=== PATIENT | female | born 1985 | race Caucasian/White ===

== ENCOUNTER 2019-06-15 11:28 | Emergency (ER) | payer MEDICARE, MEDICAID ==
[~2019-06-15] VITALS: Ht 160 cm; Wt 74.3 kg
[~2019-06-15 11:28] MED LIST: ALBU8.5H8 IH; CETI10CA PO; ESTR2TAB PO; SERT100T32 PO
[2019-06-15 11:41] VITALS: BP 140/88
[2019-06-15] MEDS ORDERED: KETOROLAC 30 MG/1 ML ONE (12:06)
[2019-06-15] MEDS ORDERED: METHOCARBAMOL 750 MG TABLET ONE (12:06)
--- NOTE | 2019-06-15 12:18 | NUR ---
pt to ed from home w/ . low back pain r/t seizure 3 days ago. hx seizures, does not take meds, has been having multiple recent seizures at home. needs neurologist. meds per mar. pt to xr.
[2019-06-15] MEDS ORDERED: METHOCARBAMOL 750 MG TABLET PO ONE (12:30)
[2019-06-15] MEDS ORDERED: KETOROLAC 30 MG/1 ML IM ONE (12:30)
== END 2019-06-15 13:16 | disposition home or self-care (01) ==
LOC: ED 13:10
DX: S39.012A Strain of muscle, fascia and tendon of lower back, initial encounter (principal); G40.909 Epilepsy, unspecified, not intractable, without status epilepticus; Z90.710 Acquired absence of both cervix and uterus; Z76.0 Encounter for issue of repeat prescription; W06.XXXA Fall from bed, initial encounter; Y93.89 Activity, other specified; Y92.89 Other specified places as the place of occurrence of the external cause; Y99.8 Other external cause status
CPT/HCPCS: 72110; 96372; 99283; J1885

== ENCOUNTER 2019-07-19 19:17 | Emergency (ER) | payer MEDICARE, MEDICAID ==
[~2019-07-19] VITALS: Ht 162.6 cm; Wt 73.9 kg
[2019-07-19] MEDS ORDERED: SODIUM CHLORIDE FLUSH 10ML SYR IVF ONE (20:00)
[2019-07-19 20:21] LABS: BASOPHILS # (AUTO) 0.02 x10^3/uL (0-0.1); BASOPHILS % (AUTO) 0 % (0-1); EOSINOPHILS # (AUTO) 0.07 x10^3/uL (0-0.4); EOSINOPHILS % (AUTO) 1 % (1-7); LYMPHOCYTES # (AUTO) 3.01 x10^3/uL (1-3.4); LYMPHOCYTES % (AUTO) 39 % (22-44); MD NO; MEAN CORPUSCULAR HEMOGLOBIN 28.1 pg (27.0-34.8); MEAN CORPUSCULAR HGB CONC 32.8 g/dL (32.4-35.8); MEAN CORPUSCULAR VOLUME 85.5 fL (80-100); MEAN PLATELET VOLUME 8.3 fL (7.4-10.4); MONOCYTES # (AUTO) 0.28 x10^3/uL (0.2-0.8); MONOCYTES % (AUTO) 4 % (2-9); NEUTROPHILS # (AUTO) 4.33 x10^3/uL (1.8-6.8); NEUTROPHILS % (AUTO) 56 % (42-75); PLATELET COUNT 303 x10^3/uL (130-400); RED BLOOD COUNT 5.14 x10^6/uL (3.82-5.3); RED CELL DISTRIBUTION WIDTH 15.3 % (9.6-15.2)
[2019-07-19 20:29] LABS: HCG UR SG 1.023 (1.003-1.030); MICROSCOPIC NOT IND
[2019-07-19 20:29] LABS: ALANINE AMINOTRANSFERASE 33 U/L (12-78); ALBUMIN 3.7 g/dL (3.4-5.0); ANION GAP 4 mmol/L (5-15); CALCIUM 9.1 mg/dL (8.5-10.1); CHLORIDE 109 mmol/L (98-107)
[2019-07-19 20:31] LABS: ALKALINE PHOSPHATASE 107 U/L (45-117); BILIRUBIN,TOTAL 0.2 mg/dL (0.2-1.0); TOTAL PROTEIN 7.9 g/dL (6.4-8.2)
[2019-07-19 20:45] LABS: CULTURE INDICATED? NO
[2019-07-19] MEDS ORDERED: ONDANSETRON 2MG/ML, 2ML ONE (21:17)
[2019-07-19] MEDS ORDERED: MORPHINE SULFATE 4 MG/ML, 1ML ONE ×2 (21:17→22:00)
[2019-07-19] MEDS ORDERED: ONDANSETRON 2MG/ML, 2ML IVPush ONE (21:30)
[2019-07-19] MEDS: MORPHINE SULFATE 4 MG/ML, 1ML IVPush PRN ×2 (21:34→22:05)
[2019-07-19] MEDS ORDERED: OMNIPAQUE 350 MG/ML, 100ML BOTTLE ONE (21:49)
[2019-07-19 22:06] VITALS: BP 115/74
--- NOTE | 2019-07-19 22:47 | NUR ---
Patient/Caregiver given discharge instructions and they have confirmed that they understand the instructions. Patient ambulatory with steady gait.
== END 2019-07-19 22:49 | disposition home or self-care (01) ==
LOC: ED 22:30
DX: R10.32 Left lower quadrant pain (principal); R11.0 Nausea; F17.200 Nicotine dependence, unspecified, uncomplicated; Z90.49 Acquired absence of other specified parts of digestive tract; Z85.41 Personal history of malignant neoplasm of cervix uteri; Z90.710 Acquired absence of both cervix and uterus; Z90.721 Acquired absence of ovaries, unilateral
CPT/HCPCS: 36415; 74177; 80053; 81003; 81025; 85025; 96374; 96375; 96376; 99284; J2270; J2405; Q9967

== ENCOUNTER 2019-10-03 11:15 | Emergency (ER) | payer MEDICARE, MEDICAID ==
[~2019-10-03] VITALS: Ht 160 cm; Wt 72.2 kg
--- NOTE | 2019-10-03 11:46 | NUR ---
KILO EDWARDS BS FOR EXAM.
--- NOTE | 2019-10-03 11:51 | NUR ---
C/O NAUSEA, DIARRHEA (DARK YELLOW), RUQ & RLQ PAIN. INTERMITTENT SX, WORSENED YESTERDAY. HAS HAD SIMILAR SX IN THE PAST. HAS HAD ELEVATED LIVER ENZYMES LEADING TO LIZZIE. LAST ORAL INTAKE: FOOD 1999 LAST NOC, COFFEE AT 0830 TODAY. 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 NO PAIN MED OR ANTI-DIARRHEAL TAKEN TODAY.
[2019-10-03] MEDS ORDERED: FAMOTIDINE 20 MG/2 ML IVPush ONE (12:00)
[2019-10-03] MEDS ORDERED: SODIUM CHLORIDE FLUSH 10ML SYR IVF ONE (12:00)
[2019-10-03] MEDS ORDERED: MORPHINE SULFATE 4 MG/ML, 1ML IVPush PRN (12:00)
[2019-10-03] MEDS ORDERED: ONDANSETRON 2MG/ML, 2ML IVPush ONE ×2 (12:00→14:30)
--- NOTE | 2019-10-03 12:05 | NUR ---
PT WAS AMBULATORY TO & FROM [facility] W/OUT INCIDENT; GAIT STEADY; VOIDED SPECIMEN PROVIDED. IV ACCESS SITES REVIEWED - LIMITED; WARM BLANKET PLACED OVER ARMS.
[2019-10-03 12:35] LABS: MICROSCOPIC NOT IND
[2019-10-03 12:38] LABS: CULTURE INDICATED? NO
--- NOTE | 2019-10-03 12:45 | NUR ---
CRUZ LEI AT FOR U/S IV ATTEMPT
[2019-10-03 13:06] LABS: BASOPHILS # (AUTO) 0.03 x10^3/uL (0-0.1); BASOPHILS % (AUTO) 0 % (0-1); EOSINOPHILS # (AUTO) 0.05 x10^3/uL (0-0.4); EOSINOPHILS % (AUTO) 1 % (1-7); LYMPHOCYTES # (AUTO) 3.06 x10^3/uL (1-3.4); LYMPHOCYTES % (AUTO) 32 % (22-44); MD NO; MEAN CORPUSCULAR HEMOGLOBIN 28.6 pg (27.0-34.8); MEAN CORPUSCULAR HGB CONC 33.4 g/dL (32.4-35.8); MEAN CORPUSCULAR VOLUME 85.6 fL (80-100); MONOCYTES # (AUTO) 0.43 x10^3/uL (0.2-0.8); MONOCYTES % (AUTO) 5 % (2-9); NEUTROPHILS # (AUTO) 6.03 x10^3/uL (1.8-6.8); NEUTROPHILS % (AUTO) 63 % (42-75); PLATELET COUNT 298 x10^3/uL (130-400); RED CELL DISTRIBUTION WIDTH 13.9 % (9.6-15.2)
[2019-10-03 13:15] LABS: ALANINE AMINOTRANSFERASE 32 U/L (12-78); ANION GAP 9 mmol/L (5-15); CALCIUM 9.4 mg/dL (8.5-10.1); CHLORIDE 108 mmol/L (98-107); CREATININE 0.73 mg/dL (0.55-1.02)
[2019-10-03 13:18] LABS: ALKALINE PHOSPHATASE 141 U/L (45-117); BILIRUBIN,TOTAL 0.3 mg/dL (0.2-1.0); TOTAL PROTEIN 8.1 g/dL (6.4-8.2)
[2019-10-03] MEDS ORDERED: MORPHINE SULFATE 4 MG/ML, 1ML ONE (13:24)
[2019-10-03] MEDS ORDERED: FAMOTIDINE 20 MG/2 ML ONE (13:24)
[2019-10-03] MEDS ORDERED: ONDANSETRON 2MG/ML, 2ML ONE ×2 (13:24→14:20)
--- NOTE | 2019-10-03 13:32 | NUR ---
ZOFRAN, PEPCID AND MORPHINE GIVEN PER EMAR.
--- NOTE | 2019-10-03 14:05 | NUR ---
PT REQUESTS MORE ZOFRAN AND MORPHINE. WILL CONSULT ERP. PT WILLING TO GO TO CT NOW.
--- NOTE | 2019-10-03 14:06 | NUR ---
TO CT PER MILAN
--- NOTE | 2019-10-03 14:15 | NUR ---
DR LIM CONSULTED RE: PT REQUEST FOR ADDITIONAL ZOFRAN AND PAIN MED. PER ERP, ADDITIONAL ZOFRAN WILL BE ORDERED; HOLD MORPHINE FOR NOW - AWAITING CT REPORT.
[2019-10-03] MEDS ORDERED: OMNIPAQUE 350 MG/ML, 100ML BOTTLE ONE (14:20)
--- NOTE | 2019-10-03 14:40 | NUR ---
GRETCHENFRAN GIVEN PER EMAR Addendum: 10/03/19 at 1443 by NOEL PT NOTIFIED OF TEMPORARY HOLD ORDER FOR MORPHINE.
[2019-10-03 14:48] VITALS: BP 116/79
[2019-10-03] MEDS ORDERED: KETOROLAC 30 MG/1 ML IVPush ONE (15:00)
[2019-10-03] MEDS ORDERED: KETOROLAC 30 MG/1 ML ONE (15:02)
--- NOTE | 2019-10-03 15:16 | NUR ---
TORADOL GIVEN PER EMAR. DC INSTRUCTIONS DISCUSSED W/ PT: UNDERSTANDING VERBALIZED.
== END 2019-10-03 15:21 | disposition home or self-care (01) ==
LOC: ED 12:22
DX: G89.29 Other chronic pain (principal); R10.31 Right lower quadrant pain; F17.210 Nicotine dependence, cigarettes, uncomplicated; Z90.710 Acquired absence of both cervix and uterus
CPT/HCPCS: 36415; 74177; 80053; 81003; 83690; 85025; 96374; 96375; 96376; 99285; J1885; J2270; J2405; J3490; Q9967

== ENCOUNTER 2019-10-12 14:16 | Emergency (ER) | payer MEDICAID, MEDICARE ==
[~2019-10-12] VITALS: Ht 160 cm; Wt 71.5 kg
--- NOTE | 2019-10-12 14:25 | NUR ---
AMBULATORY TO ED ROOM 9 W/ STEADY GAIT
--- NOTE | 2019-10-12 14:31 | NUR ---
C/O LT ABD PAIN: LLQ RADIATING TO LT FLANK. "GOT REAL BAD 2 DAYS AGO". WAS HERE 1 WEEK AGO FOR SIMILAR SX. TOOK IBUPROFEN ABOUT 1330, ZOLOFT THIS AM. +VOMITING: TWICE TODAY. LAST BM: TODAY REPORTS "MAJOR CONSTIPATION". TOOK MILK OF MAGNESIA 2 DAYS AGO. LAST ORAL INTAKE: COFFEE THIS AM, FOOD LAST NOC.
[2019-10-12] MEDS ORDERED: SODIUM CHLORIDE 0.9% 1,000ML IVBOLUS ONE (15:00)
[2019-10-12] MEDS ORDERED: ONDANSETRON 2MG/ML, 2ML IVPush ONE (15:00)
[2019-10-12] MEDS ORDERED: MORPHINE SULFATE 4 MG/ML, 1ML ONE ×2 (15:01→16:50)
[2019-10-12] MEDS ORDERED: ONDANSETRON 2MG/ML, 2ML ONE (15:01)
[2019-10-12] MEDS: MORPHINE SULFATE 4 MG/ML, 1ML IVPush PRN ×2 (15:17→16:53)
[2019-10-12 15:19] LABS: BASOPHILS # (AUTO) 0.04 x10^3/uL (0-0.1); BASOPHILS % (AUTO) 1 % (0-1); EOSINOPHILS # (AUTO) 0.06 x10^3/uL (0-0.4); EOSINOPHILS % (AUTO) 1 % (1-7); LYMPHOCYTES # (AUTO) 2.99 x10^3/uL (1-3.4); LYMPHOCYTES % (AUTO) 36 % (22-44); MD NO; MEAN CORPUSCULAR HEMOGLOBIN 27.7 pg (27.0-34.8); MEAN CORPUSCULAR VOLUME 86.4 fL (80-100); MEAN PLATELET VOLUME 8.1 fL (7.4-10.4); MONOCYTES # (AUTO) 0.35 x10^3/uL (0.2-0.8); MONOCYTES % (AUTO) 4 % (2-9); NEUTROPHILS # (AUTO) 4.81 x10^3/uL (1.8-6.8); NEUTROPHILS % (AUTO) 58 % (42-75); PLATELET COUNT 311 x10^3/uL (130-400); RED CELL DISTRIBUTION WIDTH 14.4 % (9.6-15.2)
[2019-10-12 15:30] LABS: ALANINE AMINOTRANSFERASE 23 U/L (12-78); ALBUMIN 4.4 g/dL (3.4-5.0); ANION GAP 6 mmol/L (5-15); CALCIUM 9.9 mg/dL (8.5-10.1); CHLORIDE 107 mmol/L (98-107); CREATININE 0.88 mg/dL (0.55-1.02)
[2019-10-12 15:32] LABS: ALKALINE PHOSPHATASE 131 U/L (45-117); BILIRUBIN,TOTAL 0.2 mg/dL (0.2-1.0); TOTAL PROTEIN 9.1 g/dL (6.4-8.2)
[2019-10-12 15:36] LABS: MICROSCOPIC AUTO
[2019-10-12 15:38] LABS: CULTURE INDICATED? NO
--- NOTE | 2019-10-12 16:05 | NUR ---
RETURNED FROM CT
[2019-10-12] MEDS ORDERED: OMNIPAQUE 350 MG/ML, 100ML BOTTLE ONE (16:19)
--- NOTE | 2019-10-12 16:22 | NUR ---
RESTING QUIETLY ON GURNEY. SLIGHT IMPROVEMENT IN PAIN; NOW PAIN = 8/10. NS BOLUS INFUSING W-O; IV SITE PATENT. PT ADMITS TO BEING SLEEPY. O2 SAT 100% ON 2LNC; OXYGEN DC'D. SIDE RAILS UP X2, CALL LIGHT W/IN REACH.
[2019-10-12 16:57] VITALS: BP 121/80
== END 2019-10-12 17:53 | disposition home or self-care (01) ==
LOC: ED 15:27
DX: N13.2 Hydronephrosis with renal and ureteral calculous obstruction (principal); N23 Unspecified renal colic; R11.2 Nausea with vomiting, unspecified
CPT/HCPCS: 36415; 74177; 80053; 81001; 83690; 85025; 96361; 96374; 96375; 96376; 99285; J2270; J2405; J7030; Q9967

== ENCOUNTER 2020-01-08 08:59 | Emergency (ER) | payer MEDICARE, MEDICAID ==
[~2020-01-08] VITALS: Ht 160 cm; Wt 72.8 kg
--- NOTE | 2020-01-08 09:39 | NUR ---
Dr. Quintero at bedside to remove dried mucous from pt's R nare. Pt tolerated well, resps even and unlabored, NADN.
[2020-01-08 09:40] VITALS: BP 121/76
== END 2020-01-08 10:09 | disposition home or self-care (01) ==
LOC: ED 10:00
DX: R04.0 Epistaxis (principal); Z90.710 Acquired absence of both cervix and uterus; Z90.722 Acquired absence of ovaries, bilateral; Z90.49 Acquired absence of other specified parts of digestive tract; Z85.41 Personal history of malignant neoplasm of cervix uteri
CPT/HCPCS: 99281

== ENCOUNTER 2020-01-30 13:48 | Day surgery (SDC) | payer MEDICARE, MEDICAID ==
[~2020-01-30] VITALS: Ht 160 cm; Wt 70.9 kg
[2020-01-30 14:27] VITALS: BP 137/93
[2020-01-30] MEDS ORDERED: GABAPENTIN 300 MG CAPSULE PO ONE (14:30)
[2020-01-30] MEDS ORDERED: CHLORHEXIDINE 15 ML UDC MM ONE (14:30)
[2020-01-30] MEDS ORDERED: SERT100T32 PO (14:39)
[2020-01-30] MEDS ORDERED: LACTATED RINGERS 1,000 ML IV SCH (15:00)
[2020-01-30] MEDS ORDERED: ACETAMINOPHEN 500 MG TABLET PO ONE (15:00)
[2020-01-30] MEDS ORDERED: FENTANYL PF 250 MCG/5ML ONE (18:55)
[2020-01-30] MEDS ORDERED: MIDAZOLAM 1 MG/ML, 2ML ONE (18:55)
[2020-01-30] MEDS ORDERED: MEPERIDINE/PF 25MG/0.5ML IVPush PRN (19:00)
[2020-01-30] MEDS ORDERED: hydrALAzine 20 MG/ML, 1ML IV PRN (19:00)
[2020-01-30] MEDS ORDERED: DIPHENHYDRAMINE 50 MG/ML, 1ML IVPush PRN (19:00)
[2020-01-30] MEDS ORDERED: HALOPERIDOL 5 MG/ML IV PRN (19:00)
[2020-01-30] MEDS ORDERED: LABETALOL 5MG/ML, 20ML IV PRN (19:00)
[2020-01-30] MEDS ORDERED: PROMETHAZINE 25 MG/ML, 1ML IVPush PRN (19:00)
[2020-01-30] MEDS ORDERED: OXYcodone 5 MG/5 ML ORAL.SOL UDC PO PRN (19:00)
[2020-01-30] MEDS ORDERED: BUPIVACAINE/PF-EPI 0.25% 1:200K ONE (19:03)
[2020-01-30] MEDS ORDERED: KETOROLAC 30 MG/1 ML ONE (19:35)
[2020-01-30] MEDS ORDERED: CEFAZOLIN 1,000 MG ONE (20:01)
[2020-01-30] MEDS ORDERED: NEOSTIGMINE 1 MG/ML, 10ML ONE (20:01)
[2020-01-30] MEDS ORDERED: ONDANSETRON 2MG/ML, 2ML ONE (20:01)
[2020-01-30] MEDS ORDERED: DEXAMETHASONE 4 MG/ML, 1ML ONE (20:01)
[2020-01-30] MEDS ORDERED: SUGAMMADEX 200 MG/2 ML IVPush ONE ×2 (20:01)
[2020-01-30] MEDS ORDERED: ROCURONIUM 10MG/ML,5ML ONE (20:01)
[2020-01-30] MEDS ORDERED: SUCCINYLCHOLINE 20 MG/ML, 10ML ONE (20:01)
[2020-01-30] MEDS ORDERED: PROPOFOL 10 MG/ML, 20ML ONE (20:01)
[2020-01-30] MEDS ORDERED: GLYCOPYRROLATE 0.2MG/1ML, 5ML ONE (20:01)
[2020-01-30] MEDS ORDERED: BUPIVACAINE/PF-EPI 0.25% 1:200K INFIL ONE (20:06)
[2020-01-30] MEDS ORDERED: FENTANYL PF 100 MCG/2ML ONE (20:31)
[2020-01-30] MEDS ORDERED: OXYcodone 5 MG/5 ML ORAL.SOL UDC ONE ×2 (20:31→20:48)
[2020-01-30] MEDS: FENTANYL PF 100 MCG/2ML IV PRN ×2 (20:32→20:38)
[2020-01-30] MEDS ORDERED: DIAZEPAM 5 MG/ML, 2ML ONE (20:42)
[2020-01-30] MEDS: DIAZEPAM 5 MG/ML, 2ML IVPush PRN ×2 (20:45→21:16)
[2020-01-30] MEDS ORDERED: LORazepam 2 MG/ML, 1ML IVPush PRN (21:00)
[2020-01-30] MEDS ORDERED: HYDROmorphone 1 MG/ML, 1ML INJ ONE (21:10)
[2020-01-30] MEDS: HYDROmorphone 1 MG/ML, 1ML INJ IVPush PRN ×2 (21:16→21:32)
== END 2020-01-30 23:24 | disposition home or self-care (01) ==
LOC: OR 13:48 → 5SO 22:15 → OR 23:24
PROVIDERS: ATTEND Obstetrics & Gynecology Female Pelvic Medicine and Reconstructive Surgery
DX: R10.2 Pelvic and perineal pain (principal); Z11.59 Encounter for screening for other viral diseases; N94.10 Unspecified dyspareunia; I10 Essential (primary) hypertension; M06.9 Rheumatoid arthritis, unspecified; G43.909 Migraine, unspecified, not intractable, without status migrainosus; J45.909 Unspecified asthma, uncomplicated; G40.909 Epilepsy, unspecified, not intractable, without status epilepticus; F17.210 Nicotine dependence, cigarettes, uncomplicated; Z79.899 Other long term (current) drug therapy; Z88.0 Allergy status to penicillin; Z88.8 Allergy status to other drugs, medicaments and biological substances; Z91.040 Latex allergy status; Z87.442 Personal history of urinary calculi; Z90.710 Acquired absence of both cervix and uterus; Z90.49 Acquired absence of other specified parts of digestive tract; Z90.722 Acquired absence of ovaries, bilateral; Z98.890 Other specified postprocedural states
CPT/HCPCS: 36415; 49320; 87635; J0330; J0690; J1100; J1170; J1885; J2250; J2405; J2704; J3010; J3360; J7120; G0378; J2710

== ENCOUNTER 2020-06-20 17:14 | Emergency (ER) | payer MEDICARE, MEDICAID ==
[~2020-06-20] VITALS: Ht 160 cm; Wt 71.0 kg
--- NOTE | 2020-06-20 18:21 | NUR ---
TASK RN: ELVIRA FAROOQ OBTAINED W/O INCIDENT. WALKED TO LAB.
[2020-06-20] MEDS ORDERED: OXYC5TAB3 PO (18:26)
--- NOTE | 2020-06-20 18:27 | NUR ---
LATE ENTRY: PT PRESENTED TO ED D/T VAGINAL PAIN AND DISCHARGE. PT STATES HX OF CERVIAL CANCER. STATES SYMPTOMS STARTED TODAY.
[2020-06-20 18:46] LABS: HCG UR SG 1.036 (1.003-1.030); MICROSCOPIC NOT IND
--- NOTE | 2020-06-20 18:48 | NUR ---
REPORT TO KAY AWAD.
[2020-06-20] MEDS ORDERED: OXYcodone IR 5MG TABLET PO STA (18:51)
--- NOTE | 2020-06-20 18:51 | NUR ---
BEDSIDE REPORT RECEIVED FROM MAYA VILLANUEVA
[2020-06-20 18:55] LABS: CLUE CELLS NONE SEEN (NONE SEEN); WET PREP WBCS MANY (FEW)
[2020-06-20] MEDS ORDERED: OXYcodone IR 5MG TABLET ONE ×2 (18:56→19:00)
[2020-06-20 19:02] VITALS: BP 130/75
[2020-06-20 19:06] LABS: BASOPHILS % (AUTO) 1 % (0-1); EOSINOPHILS % (AUTO) 2 % (1-7); LYMPHOCYTES % (AUTO) 39 % (22-44); MEAN CORPUSCULAR HEMOGLOBIN 28.7 pg (27.0-34.8); MEAN CORPUSCULAR HGB CONC 33.1 g/dL (32.4-35.8); MEAN PLATELET VOLUME 8.1 fL (7.4-10.4); MONOCYTES % (AUTO) 5 % (2-9); NEUTROPHILS % (AUTO) 53 % (42-75); PLATELET COUNT 242 x10^3/uL (130-400); RED BLOOD COUNT 4.56 x10^6/uL (3.82-5.3); RED CELL DISTRIBUTION WIDTH 14.4 % (9.6-15.2)
[2020-06-20 19:08] LABS: MD NO
[2020-06-20] MEDS ORDERED: FLUCONAZOLE 100 MG TABLET ONE (19:17)
[2020-06-20 19:18] LABS: CHLORIDE 109 mmol/L (98-107)
[2020-06-20 19:22] LABS: ANION GAP 4 mmol/L (5-15); CALCIUM 9.5 mg/dL (8.5-10.1); CREATININE 0.72 mg/dL (0.55-1.02)
--- NOTE | 2020-06-20 19:25 | NUR ---
PT SITTING UPRIGHT ON GURNEY. NAD, VSS. "I WANT TO LEAVE NOW, I GOT MY MEDICATION AND I WANT TO GO HOME, ITS SNOWING I HAVE TO LEAVE". AWAITING D/C. PT DENIES NAY NEEDS AT THIS TIME. CALL LIGHT WITHIN REACH.
[2020-06-20] MEDS ORDERED: FLUCONAZOLE 100 MG TABLET PO ONE (19:30)
[2020-06-20] MEDS ORDERED: OXYcodone IR 5MG TABLET PO ONE (19:30)
--- NOTE | 2020-06-20 19:31 | NUR ---
ERP AT BEDSIDE
--- NOTE | 2020-06-20 19:41 | NUR ---
Patient given discharge instructions and they have confirmed that they understand the instructions. Patient ambulatory with steady gait. Pt refused repeat vitals at this time.
== END 2020-06-20 19:43 | disposition home or self-care (01) ==
LOC: ED 18:33
DX: B37.3 Candidiasis of vulva and vagina (principal); Z90.49 Acquired absence of other specified parts of digestive tract; Z90.710 Acquired absence of both cervix and uterus; Z90.721 Acquired absence of ovaries, unilateral; F17.200 Nicotine dependence, unspecified, uncomplicated; Z85.41 Personal history of malignant neoplasm of cervix uteri
CPT/HCPCS: 36415; 80048; 81003; 81025; 85025; 87210; 87491; 87591; 87808; 99284

== ENCOUNTER 2020-07-06 19:48 | Emergency (ER) | payer MEDICARE, MEDICAID ==
[~2020-07-06] VITALS: Ht 160 cm; Wt 67.7 kg
[~2020-07-06 19:48] MED LIST changes: +OXYC5TAB3 PO
[2020-07-06] MEDS ORDERED: METHOCARBAMOL 750 MG TABLET ONE (20:15)
--- NOTE | 2020-07-06 20:23 | NUR ---
PT HERE FOR BACK PAIN X 3 DAYS. PT STATES TAKING IBUPROFEN, TYLENOL, AND ROBAXIN 3 HOURS AGO BEFORE COMING IN AND NO PAIN RELIEF. ERP EVALUATED PATIENT. PT MEDICATED PER EMAR, PT CURRENTLY GETTING CLEAN CATCH URINE SAMPLE
[2020-07-06] MEDS ORDERED: METHOCARBAMOL 750 MG TABLET PO ONE (20:30)
[2020-07-06] MEDS ORDERED: ONDANSETRON ODT 4 MG PO ONE (20:30)
[2020-07-06 20:37] LABS: MICROSCOPIC NOT IND
[2020-07-06] MEDS ORDERED: HYDROmorphone 2 MG/ML, 1ML ONE (20:43)
[2020-07-06] MEDS ORDERED: ONDANSETRON ODT 4 MG ONE (20:46)
--- NOTE | 2020-07-06 20:55 | NUR ---
SPOKE WITH ERP ABOUT PT'S PAIN, ORDER GIVEN AND MEDICATED PER EMAR. LAB AT BEDSIDE FOR BLOOD DRAW. NO OTHER NEEDS AT THIS TIME
[2020-07-06] MEDS ORDERED: HYDROmorphone 1 MG/ML, 1ML INJ IM ONE (21:00)
[2020-07-06 21:10] LABS: BASOPHILS % (AUTO) 1 % (0-1); EOSINOPHILS % (AUTO) 0 % (1-7); LYMPHOCYTES % (AUTO) 33 % (22-44); MEAN CORPUSCULAR HEMOGLOBIN 28.7 pg (27.0-34.8); MEAN CORPUSCULAR HGB CONC 33.1 g/dL (32.4-35.8); MEAN PLATELET VOLUME 7.7 fL (7.4-10.4); MONOCYTES % (AUTO) 5 % (2-9); NEUTROPHILS % (AUTO) 62 % (42-75); PLATELET COUNT 354 x10^3/uL (130-400); RED BLOOD COUNT 5.57 x10^6/uL (3.82-5.3); RED CELL DISTRIBUTION WIDTH 14.6 % (9.6-15.2)
[2020-07-06 21:12] LABS: MD NO
[2020-07-06 21:19] LABS: ANION GAP 6 mmol/L (5-15); CALCIUM 9.5 mg/dL (8.5-10.1); CHLORIDE 108 mmol/L (98-107)
[2020-07-06 21:26] LABS: ALANINE AMINOTRANSFERASE 18 U/L (12-78); ALKALINE PHOSPHATASE 148 U/L (45-117); BILIRUBIN,TOTAL 0.4 mg/dL (0.2-1.0); CREATININE 0.83 mg/dL (0.55-1.02); TOTAL PROTEIN 8.5 g/dL (6.4-8.2)
[2020-07-06] MEDS ORDERED: OXYcodone/APAP 5/325MG TABLET ONE (22:16)
[2020-07-06] MEDS ORDERED: OXYcodone/APAP 10/325MG TABLET PO ONE (22:30)
[2020-07-06 22:47] VITALS: BP 118/86
== END 2020-07-06 23:07 | disposition home or self-care (01) ==
LOC: ED 20:37
DX: G89.29 Other chronic pain (principal); M54.41 Lumbago with sciatica, right side; R10.13 Epigastric pain; R10.11 Right upper quadrant pain; Z90.49 Acquired absence of other specified parts of digestive tract; Z90.710 Acquired absence of both cervix and uterus
CPT/HCPCS: 36415; 80053; 81003; 83690; 84703; 85025; 96372; 99284; J1170; J7512; Q0162; 99283

== ENCOUNTER 2020-08-28 10:02 | Emergency (ER) | payer MEDICARE, MEDICAID ==
[~2020-08-28] VITALS: Ht 160 cm; Wt 68.4 kg
[~2020-08-28 10:02] MED LIST changes: -OXYC5TAB3 PO; +OXYC5TAB98 PO
[2020-08-28 10:15] VITALS: BP 133/90
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
[2020-08-28] MEDS ORDERED: SILVER SULF. CRM 1% , 25GM TP ONE (11:00)
[2020-08-28] MEDS ORDERED: OXYcodone/APAP 5/325MG TABLET PO ONE (11:00)
[2020-08-28] MEDS ORDERED: OXYcodone/APAP 5/325MG TABLET ONE (11:01)
[2020-08-28] MEDS ORDERED: SILVER SULF. CRM 1% , 25GM ONE (11:12)
--- NOTE | 2020-08-28 11:40 | NUR ---
Wound dressed by PIPPA Lopez. Patient tolerated well.
--- NOTE | 2020-08-28 12:10 | NUR ---
Patient/Caregiver given discharge instructions and they have confirmed that they understand the instructions. Patient ambulatory with steady gait.
== END 2020-08-28 12:12 | disposition home or self-care (01) ==
LOC: ED 12:09
DX: T23.112A Burn of first degree of left thumb (nail), initial encounter (principal); T31.0 Burns involving less than 10% of body surface; F17.210 Nicotine dependence, cigarettes, uncomplicated; X11.8XXA Contact with other hot tap-water, initial encounter; Y93.G3 Activity, cooking and baking; Y92.89 Other specified places as the place of occurrence of the external cause; Y99.8 Other external cause status
CPT/HCPCS: 16020; 99283

== ENCOUNTER 2020-08-28 17:35 | Emergency (ER) | payer MEDICARE, MEDICAID ==
[~2020-08-28] VITALS: Ht 160 cm; Wt 67.2 kg
[2020-08-28 17:42] VITALS: BP 130/91
[2020-08-28] MEDS ORDERED: DIPHENHYDRAMINE 25 MG CAPSULE ONE (18:19)
[2020-08-28] MEDS ORDERED: GABAPENTIN 300 MG CAPSULE ONE (18:20)
[2020-08-28] MEDS ORDERED: DIPHENHYDRAMINE 25 MG CAPSULE PO ONE (18:30)
[2020-08-28] MEDS ORDERED: GABAPENTIN 300 MG CAPSULE PO ONE (18:30)
== END 2020-08-28 18:56 | disposition home or self-care (01) ==
LOC: ED 18:20
DX: T23.212A Burn of second degree of left thumb (nail), initial encounter (principal); T23.272A Burn of second degree of left wrist, initial encounter; T31.0 Burns involving less than 10% of body surface; F17.210 Nicotine dependence, cigarettes, uncomplicated; Z90.49 Acquired absence of other specified parts of digestive tract; Z90.710 Acquired absence of both cervix and uterus; Z90.722 Acquired absence of ovaries, bilateral; Z85.41 Personal history of malignant neoplasm of cervix uteri
CPT/HCPCS: 16020; 99283; 99406; Q0163

== ENCOUNTER 2020-10-04 11:35 | Emergency (ER) | payer MEDICARE, MEDICAID ==
[~2020-10-04] VITALS: Ht 160 cm; Wt 69.3 kg
[2020-10-04 11:40] VITALS: BP 138/78
--- NOTE | 2020-10-04 12:03 | NUR ---
PT C/O LEFT FLANK PAIN THAT RADIATES TO THE BELLY BUTTON. PT STATES SHE WENT TO BED LAST NIGHT WTH UPSET STOMACH BUT WOKE UP THIS AM WITH PAIN TO THE LEFT FLANK. PT ALSO C/O DIZZINESS.
[2020-10-04 12:24] LABS: MICROSCOPIC NOT IND
[2020-10-04] MEDS ORDERED: KETOROLAC 30 MG/1 ML IM ONE (12:30)
[2020-10-04 12:33] LABS: BASOPHILS % (AUTO) 1 % (0-1); EOSINOPHILS % (AUTO) 0 % (1-7); LYMPHOCYTES % (AUTO) 37 % (22-44); MD NO; MEAN CORPUSCULAR HEMOGLOBIN 29.1 pg (27.0-34.8); MEAN CORPUSCULAR HGB CONC 33.9 g/dL (32.4-35.8); MEAN PLATELET VOLUME 7.9 fL (7.4-10.4); MONOCYTES % (AUTO) 4 % (2-9); NEUTROPHILS % (AUTO) 58 % (42-75); PLATELET COUNT 307 x10^3/uL (130-400); RED BLOOD COUNT 5.24 x10^6/uL (3.82-5.3); RED CELL DISTRIBUTION WIDTH 14.4 % (9.6-15.2)
[2020-10-04] MEDS ORDERED: KETOROLAC 60 MG/2 ML ONE (12:33)
[2020-10-04 12:42] LABS: ALBUMIN 4.1 g/dL (3.4-5.0); ANION GAP 7 mmol/L (5-15); CALCIUM 9.8 mg/dL (8.5-10.1); CHLORIDE 106 mmol/L (98-107); CREATININE 0.66 mg/dL (0.55-1.02)
[2020-10-04 12:44] LABS: ALANINE AMINOTRANSFERASE 17 U/L (12-78); ALKALINE PHOSPHATASE 115 U/L (45-117); BILIRUBIN,TOTAL 0.3 mg/dL (0.2-1.0); TOTAL PROTEIN 8.2 g/dL (6.4-8.2)
--- NOTE | 2020-10-04 13:04 | NUR ---
PT REFUSED TORADOL. NOTIFIED. PT AGREES TO GET X RAY
[2020-10-04] MEDS ORDERED: MAALOX/HYOSCYAMINE/LIDOCAINE 45 ML BTL ONE (13:19)
[2020-10-04] MEDS ORDERED: MAALOX/HYOSCYAMINE/LIDOCAINE 45 ML BTL PO ONE (13:30)
== END 2020-10-04 13:29 | disposition home or self-care (01) ==
LOC: ED 12:04
DX: G89.29 Other chronic pain (principal); R10.32 Left lower quadrant pain; Z90.49 Acquired absence of other specified parts of digestive tract; Z90.710 Acquired absence of both cervix and uterus; Z90.721 Acquired absence of ovaries, unilateral
CPT/HCPCS: 36415; 74018; 80053; 81003; 83690; 85025; 93005; 99285

== ENCOUNTER 2020-11-01 12:48 | Emergency (ER) | payer MEDICARE, MEDICAID ==
[~2020-11-01] VITALS: Ht 160 cm; Wt 68.6 kg
--- NOTE | 2020-11-01 13:32 | NUR ---
CABINET ABRASIVE SANDBLASTER: PT AMBULATORY TO ROOM FROMO LOBBY.
--- NOTE | 2020-11-01 13:43 | NUR ---
PT AMBULATORY TO BR TO PROVIDE UA.
[2020-11-01 14:09] VITALS: BP 131/81
[2020-11-01 14:12] LABS: BASOPHILS % (AUTO) 1 % (0-1); EOSINOPHILS % (AUTO) 1 % (1-7); LYMPHOCYTES % (AUTO) 38 % (22-44); MEAN CORPUSCULAR HEMOGLOBIN 29.7 pg (27.0-34.8); MONOCYTES % (AUTO) 5 % (2-9); NEUTROPHILS % (AUTO) 57 % (42-75); PLATELET COUNT 400 x10^3/uL (130-400); RED BLOOD COUNT 5.07 x10^6/uL (3.82-5.3); RED CELL DISTRIBUTION WIDTH 14.9 % (9.6-15.2)
[2020-11-01 14:12] LABS: MICROSCOPIC NOT IND
[2020-11-01 14:13] LABS: ALANINE AMINOTRANSFERASE 18 U/L (12-78); ALBUMIN 4.1 g/dL (3.4-5.0); ANION GAP 5 mmol/L (5-15); CALCIUM 9.4 mg/dL (8.5-10.1); CHLORIDE 108 mmol/L (98-107)
[2020-11-01] MEDS ORDERED: DICYCLOMINE 10 MG/ML, 2ML ONE (14:16)
[2020-11-01] MEDS ORDERED: ONDANSETRON 2MG/ML, 2ML ONE (14:16)
--- NOTE | 2020-11-01 14:16 | NUR ---
X-RAY, US DELAYED
[2020-11-01 14:17] LABS: ALKALINE PHOSPHATASE 117 U/L (45-117); BILIRUBIN,TOTAL 0.2 mg/dL (0.2-1.0); TOTAL PROTEIN 8.3 g/dL (6.4-8.2)
[2020-11-01 14:18] LABS: MD NO
--- NOTE | 2020-11-01 14:20 | NUR ---
IN TO START IV AND GIVE MEDICATIONS. PT IN IMAGING.
[2020-11-01] MEDS ORDERED: DICYCLOMINE 10 MG/ML, 2ML IM ONE (14:30)
[2020-11-01] MEDS ORDERED: SODIUM CHLORIDE 0.9% 1,000ML IVBOLUS ONE (14:30)
[2020-11-01] MEDS ORDERED: ONDANSETRON 2MG/ML, 2ML IVPush ONE (14:30)
[2020-11-01] MEDS ORDERED: SODIUM CHLORIDE FLUSH 10ML SYR IVF ONE (14:30)
--- NOTE | 2020-11-01 15:04 | NUR ---
REPORT FROM RENETTA VILLANUEVA
--- NOTE | 2020-11-01 15:04 | NUR ---
REPORT TO HALEY DUBOSE BACK FROM IMAGING. ED MEDIC IN TO START IV.
--- NOTE | 2020-11-01 15:23 | NUR ---
PT REFUSING BENTYL, STATES "I DONT WANT ANOTHER SHOT, ROBERT BEEN POKED SO MANY TIMES", PT EDUCATED ON MED, PT STIL LREFUSING AND STATING "I JUST WANT MY PAIN GONE".
== END 2020-11-01 16:17 | disposition home or self-care (01) ==
LOC: ED 13:36
DX: R10.31 Right lower quadrant pain (principal); R11.2 Nausea with vomiting, unspecified; R19.7 Diarrhea, unspecified; F17.210 Nicotine dependence, cigarettes, uncomplicated; I10 Essential (primary) hypertension; Z90.49 Acquired absence of other specified parts of digestive tract; Z85.41 Personal history of malignant neoplasm of cervix uteri
CPT/HCPCS: 36415; 74021; 76830; 80053; 81003; 83690; 84703; 85025; 96361; 96374; 99285; 99406; J2405; J7030

== ENCOUNTER 2020-11-26 11:09 | Emergency (ER) | payer MEDICARE, MEDICAID ==
[~2020-11-26] VITALS: Ht 160 cm; Wt 67.0 kg
[2020-11-26] MEDS ORDERED: SODIUM CHLORIDE 0.9% 1,000ML IVBOLUS ONE ×2 (12:00→14:00)
[2020-11-26 12:38] LABS: BASOPHILS % (AUTO) 1 % (0-1); EOSINOPHILS % (AUTO) 0 % (1-7); LYMPHOCYTES % (AUTO) 30 % (22-44); MEAN CORPUSCULAR HEMOGLOBIN 29.7 pg (27.0-34.8); MEAN CORPUSCULAR HGB CONC 33.9 g/dL (32.4-35.8); MEAN PLATELET VOLUME 7.9 fL (7.4-10.4); MONOCYTES % (AUTO) 4 % (2-9); NEUTROPHILS % (AUTO) 65 % (42-75); PLATELET COUNT 387 x10^3/uL (130-400); RED BLOOD COUNT 5.43 x10^6/uL (3.82-5.3); RED CELL DISTRIBUTION WIDTH 14.4 % (9.6-15.2)
[2020-11-26 13:01] LABS: ALANINE AMINOTRANSFERASE 24 U/L (12-78); ALBUMIN 4.3 g/dL (3.4-5.0); ANION GAP 11 mmol/L (5-15); CALCIUM 9.4 mg/dL (8.5-10.1); CHLORIDE 107 mmol/L (98-107); CREATININE 0.74 mg/dL (0.55-1.02)
[2020-11-26 13:04] LABS: ALKALINE PHOSPHATASE 145 U/L (45-117); BILIRUBIN,TOTAL 0.4 mg/dL (0.2-1.0); TOTAL PROTEIN 8.8 g/dL (6.4-8.2)
[2020-11-26 13:26] LABS: MD SCAN
[2020-11-26] MEDS ORDERED: SODIUM CHLORIDE FLUSH 10ML SYR IVF ONE (14:00)
[2020-11-26] MEDS ORDERED: MORPHINE SULFATE 4 MG/ML, 1ML IVPush PRN (14:00)
[2020-11-26] MEDS ORDERED: ONDANSETRON 2MG/ML, 2ML IVPush ONE (14:00)
[2020-11-26] MEDS ORDERED: ONDANSETRON 2MG/ML, 2ML ONE (14:01)
[2020-11-26] MEDS ORDERED: MORPHINE SULFATE 4 MG/ML, 1ML ONE (14:01)
[2020-11-26 14:02] LABS: MICROSCOPIC AUTO
--- NOTE | 2020-11-26 15:19 | NUR ---
pt refusing dc, requests provider. aware.
--- NOTE | 2020-11-26 15:39 | NUR ---
PT AMBULATES TO BATHROOM WITH SISTER.
[2020-11-26] MEDS ORDERED: KETOROLAC 30 MG/1 ML ONE (16:06)
[2020-11-26 16:13] VITALS: BP 126/76
[2020-11-26] MEDS ORDERED: KETOROLAC 30 MG/1 ML IVPush ONE (16:30)
== END 2020-11-26 16:29 | disposition home or self-care (01) ==
LOC: ED 11:19
DX: R11.2 Nausea with vomiting, unspecified (principal); R19.7 Diarrhea, unspecified; I10 Essential (primary) hypertension; J45.909 Unspecified asthma, uncomplicated; Z90.49 Acquired absence of other specified parts of digestive tract
CPT/HCPCS: 36415; 80053; 81001; 83690; 85025; 93005; 96361; 96374; 96375; 99284; J1885; J2270; J2405; J7030

== ENCOUNTER 2020-11-27 09:19 | Emergency (ER) | payer MEDICARE, MEDICAID ==
[~2020-11-27] VITALS: Ht 160 cm; Wt 67.7 kg
--- NOTE | 2020-11-27 09:50 | NUR ---
PT REPORTS SHE WAS JUST HOSPITALIZED X2 DAYS HERE FOR SAME COMPLAINT. REPORTS SHE WAS TOLD TO COME BACK IF SYMPTOMS NOT IMPROVING.
--- NOTE | 2020-11-27 09:59 | NUR ---
MOTHER & GRANDMOTHER VISITING AT BS.
[2020-11-27] MEDS ORDERED: FAMOTIDINE 20 MG/2 ML IVPush ONE (10:00)
[2020-11-27] MEDS ORDERED: SODIUM CHLORIDE 0.9% 1,000ML IVBOLUS ONE (10:00)
[2020-11-27] MEDS ORDERED: ONDANSETRON 2MG/ML, 2ML IVPush ONE (10:00)
[2020-11-27] MEDS ORDERED: ONDANSETRON 2MG/ML, 2ML ONE (10:05)
[2020-11-27 10:44] LABS: BASOPHILS % (AUTO) 1 % (0-1); EOSINOPHILS % (AUTO) 1 % (1-7); LYMPHOCYTES % (AUTO) 31 % (22-44); MEAN CORPUSCULAR HEMOGLOBIN 29.4 pg (27.0-34.8); MEAN PLATELET VOLUME 7.5 fL (7.4-10.4); MONOCYTES % (AUTO) 4 % (2-9); NEUTROPHILS % (AUTO) 64 % (42-75); PLATELET COUNT 333 x10^3/uL (130-400); RED BLOOD COUNT 4.89 x10^6/uL (3.82-5.3); RED CELL DISTRIBUTION WIDTH 14.1 % (9.6-15.2)
[2020-11-27 10:45] LABS: MD NO
--- NOTE | 2020-11-27 10:49 | NUR ---
PT MEDICATED PER ORDERS, IV BOLUS INFUSING. UNDERSTANDS POC. FAMILY AT BS.
[2020-11-27 10:53] LABS: ALANINE AMINOTRANSFERASE 24 U/L (12-78); ALBUMIN 3.8 g/dL (3.4-5.0); ANION GAP 8 mmol/L (5-15); CALCIUM 8.9 mg/dL (8.5-10.1); CHLORIDE 109 mmol/L (98-107); CREATININE 0.62 mg/dL (0.55-1.02)
[2020-11-27 10:55] LABS: ALKALINE PHOSPHATASE 122 U/L (45-117); BILIRUBIN,TOTAL 0.3 mg/dL (0.2-1.0); TOTAL PROTEIN 7.7 g/dL (6.4-8.2)
--- NOTE | 2020-11-27 10:59 | NUR ---
PT AMBULATED TO BR WITHOUT DIFFICULTY, INSTRUCTED ON CLEAN CATCH URINE SAMPLE.
[2020-11-27] MEDS ORDERED: HALOPERIDOL 5 MG/ML IV ONE (11:00)
[2020-11-27 11:23] LABS: MICROSCOPIC NOT IND
[2020-11-27] MEDS ORDERED: HALOPERIDOL 5 MG/ML ONE (11:43)
[2020-11-27 11:49] VITALS: BP 107/62
--- NOTE | 2020-11-27 11:50 | NUR ---
PT REQUESTED PAIN MEDICATION. ERP NOTIFIED, NO NEW ORDERS AT THIS TIME. MEDICATED WITH IV HALDOL PER ORDERS. ON ALL MONITORING.
--- NOTE | 2020-11-27 12:45 | NUR ---
D/C INSTRUCTIONS, MEDS & F/U APPT RV'WD WITH PT, SHE VERBALIZES UNDERSTANDING. RX GIVEN X2. PT AMBULATED OUT OF ED WITHOUT DIFFICULTY. STATES FRIEND WILL PICK HER UP.
== END 2020-11-27 12:46 | disposition home or self-care (01) ==
LOC: ED 09:27
DX: K52.9 Noninfective gastroenteritis and colitis, unspecified (principal); I10 Essential (primary) hypertension; R11.2 Nausea with vomiting, unspecified; Z90.49 Acquired absence of other specified parts of digestive tract; Z85.41 Personal history of malignant neoplasm of cervix uteri
CPT/HCPCS: 36415; 80053; 81003; 83690; 85025; 96361; 96374; 96375; 99284; J1630; J2405; J7030

== ENCOUNTER 2020-12-01 13:13 | Emergency (ER) | payer MEDICARE, MEDICAID ==
[~2020-12-01] VITALS: Ht 160 cm; Wt 70.0 kg
[2020-12-01 13:54] LABS: BASOPHILS % (AUTO) 0 % (0-1); EOSINOPHILS % (AUTO) 1 % (1-7); LYMPHOCYTES % (AUTO) 34 % (22-44); MEAN CORPUSCULAR HEMOGLOBIN 29.2 pg (27.0-34.8); MEAN CORPUSCULAR HGB CONC 33.6 g/dL (32.4-35.8); MEAN PLATELET VOLUME 7.9 fL (7.4-10.4); MONOCYTES % (AUTO) 4 % (2-9); NEUTROPHILS % (AUTO) 60 % (42-75); PLATELET COUNT 320 x10^3/uL (130-400); RED BLOOD COUNT 5.05 x10^6/uL (3.82-5.3)
--- NOTE | 2020-12-01 13:54 | NUR ---
URINE COLLECTED/SENT.
[2020-12-01 13:56] LABS: MD NO
[2020-12-01 14:06] LABS: ALANINE AMINOTRANSFERASE 23 U/L (12-78); ALBUMIN 4.3 g/dL (3.4-5.0); ANION GAP 6 mmol/L (5-15); CALCIUM 8.8 mg/dL (8.5-10.1); CHLORIDE 105 mmol/L (98-107); CREATININE 0.71 mg/dL (0.55-1.02)
[2020-12-01 14:08] LABS: ALKALINE PHOSPHATASE 119 U/L (45-117); BILIRUBIN,TOTAL 0.2 mg/dL (0.2-1.0)
--- NOTE | 2020-12-01 14:38 | NUR ---
DISTRIBUTOR SALES CONSULTANT: PT TO ROOM FROM LOBBY
--- NOTE | 2020-12-01 14:46 | NUR ---
PT HAS CO "SWOLLEN KIDNEYS" FLANK PAIN, WORSENING SINCE LAST DC FOR SAME. UA SENT.
[2020-12-01 14:51] LABS: MICROSCOPIC NOT IND
[2020-12-01] MEDS ORDERED: ONDANSETRON 2MG/ML, 2ML ONE (15:27)
[2020-12-01] MEDS ORDERED: HYDROmorphone 1 MG/ML, 1ML INJ ONE (15:27)
[2020-12-01] MEDS ORDERED: ONDANSETRON 2MG/ML, 2ML IVPush ONE (15:30)
[2020-12-01] MEDS ORDERED: HYDROmorphone 1 MG/ML, 1ML INJ IV ONE (15:30)
[2020-12-01] MEDS ORDERED: SODIUM CHLORIDE FLUSH 10ML SYR IVF ONE (15:30)
--- NOTE | 2020-12-01 15:32 | NUR ---
MEDICATED FOR PAIN AND NAUSEA. PLAN FOR CT
--- NOTE | 2020-12-01 16:00 | NUR ---
PT RESTING, PAIN OK. AWAITING RESULTS
--- NOTE | 2020-12-01 17:00 | NUR ---
PT AMUBLATED TO BATHROOM
--- NOTE | 2020-12-01 17:02 | NUR ---
Note praveen in ED - 12/01/20 at 1809 by NITIN PT LEAVING, DOES NOT WANT TO STAY FOR RESULTS. AWARE.
[2020-12-01 18:07] VITALS: BP 126/80
--- NOTE | 2020-12-01 18:09 | NUR ---
Patient given discharge instructions and they have confirmed that they understand the instructions. Patient ambulatory with steady gait.
== END 2020-12-01 18:08 | disposition home or self-care (01) ==
LOC: ED 15:05
DX: R10.9 Unspecified abdominal pain (principal); M54.9 Dorsalgia, unspecified; R11.2 Nausea with vomiting, unspecified; I10 Essential (primary) hypertension; F17.200 Nicotine dependence, unspecified, uncomplicated; Z90.49 Acquired absence of other specified parts of digestive tract; Z85.41 Personal history of malignant neoplasm of cervix uteri
CPT/HCPCS: 36415; 74177; 80053; 81003; 85025; 96374; 96375; 99285; J1170; J2405

== ENCOUNTER 2021-01-03 16:53 | Emergency (ER) | payer MEDICARE, MEDICAID ==
[~2021-01-03] VITALS: Ht 160 cm; Wt 68.8 kg
--- NOTE | 2021-01-03 17:06 | NUR ---
RAILCAR MECHANIC: PT PROVIDED URINE SAMPLE, SPECIMEN WALKED TO LAB.
[2021-01-03 17:23] LABS: MICROSCOPIC NOT IND
--- NOTE | 2021-01-03 17:47 | NUR ---
PT TO ROOM FROM LOBBY
--- NOTE | 2021-01-03 17:49 | NUR ---
PT AMBULATORY TO ROOM FROM [facility], PT CHANGED INTO GOWN. MONITORS IN PLACE. PT C/O N/V/D FOR 1X MONTH. PT STATES TODAY SHE STARTED TO HAVE A FEVER. PT STATES SHE WENT TO [place] LAST NIGHT FOR SAME.
--- NOTE | 2021-01-03 17:57 | NUR ---
ERP AT BS
[2021-01-03] MEDS ORDERED: ONDANSETRON 2MG/ML, 2ML ONE (18:07)
--- NOTE | 2021-01-03 18:17 | NUR ---
XRAY AT BS
[2021-01-03] MEDS ORDERED: FAMOTIDINE 20 MG/2 ML ONE (18:18)
[2021-01-03] MEDS ORDERED: MAALOX/HYOSCYAMINE/LIDOCAINE 45 ML BTL ONE (18:18)
[2021-01-03] MEDS ORDERED: FAMOTIDINE 20 MG/2 ML IVPush ONE (18:30)
[2021-01-03] MEDS ORDERED: SODIUM CHLORIDE 0.9% 1,000ML IVBOLUS ONE (18:30)
[2021-01-03] MEDS ORDERED: MAALOX/HYOSCYAMINE/LIDOCAINE 45 ML BTL PO ONE (18:30)
[2021-01-03] MEDS ORDERED: SODIUM CHLORIDE FLUSH 10ML SYR IVF ONE (18:30)
[2021-01-03] MEDS ORDERED: ONDANSETRON 2MG/ML, 2ML IVPush ONE (18:30)
--- NOTE | 2021-01-03 18:31 | NUR ---
PIV PLACED, PT MEDICATED PER EMAR. PT REFUSED GI COCKTAIL STATED THE LIDOCAINE MAKES HER FEEL FUNNY
[2021-01-03 18:40] LABS: BASOPHILS % (AUTO) 1 % (0-1); EOSINOPHILS % (AUTO) 0 % (1-7); LYMPHOCYTES % (AUTO) 29 % (22-44); MEAN CORPUSCULAR HEMOGLOBIN 29.3 pg (27.0-34.8); MEAN CORPUSCULAR HGB CONC 33.7 g/dL (32.4-35.8); MEAN PLATELET VOLUME 8.1 fL (7.4-10.4); MONOCYTES % (AUTO) 4 % (2-9); NEUTROPHILS % (AUTO) 66 % (42-75); PLATELET COUNT 269 x10^3/uL (130-400); RED BLOOD COUNT 4.86 x10^6/uL (3.82-5.3); RED CELL DISTRIBUTION WIDTH 13.8 % (9.6-15.2)
--- NOTE | 2021-01-03 18:52 | NUR ---
REPORT TO KAY YUAN
[2021-01-03 18:53] LABS: ALBUMIN 3.8 g/dL (3.4-5.0); ANION GAP 8 mmol/L (5-15); CALCIUM 9.2 mg/dL (8.5-10.1); CHLORIDE 108 mmol/L (98-107)
[2021-01-03 18:57] LABS: ALANINE AMINOTRANSFERASE 28 U/L (12-78); ALKALINE PHOSPHATASE 105 U/L (45-117); BILIRUBIN,TOTAL 0.4 mg/dL (0.2-1.0); CREATININE 0.71 mg/dL (0.55-1.02); TOTAL PROTEIN 7.7 g/dL (6.4-8.2)
--- NOTE | 2021-01-03 18:59 | NUR ---
First contact with patient, pt c/o still feeling nauseated with stomach cramps. VSS, IVF infusing.
[2021-01-03] MEDS ORDERED: DICYCLOMINE 10 MG/ML, 2ML IM ONE (19:00)
[2021-01-03] MEDS ORDERED: DICYCLOMINE 10 MG/ML, 2ML ONE (19:01)
--- NOTE | 2021-01-03 19:06 | NUR ---
Pt refused bentyl IM injection states "it didn't work at other hospital". Dr Levi informed. Pt has had no n/v/d since this nurse has taken over.
--- NOTE | 2021-01-03 19:30 | NUR ---
Pt crying when walks by, informed dr Levi.
--- NOTE | 2021-01-03 19:44 | NUR ---
Dr Levi in to update pt. Pt to be d/c.
--- NOTE | 2021-01-03 19:47 | NUR ---
IV dc cath intact, pt expressing her disatisfaction with todays evaluation. Pt given dc papers and instruct to f/u with pcp; return to ER if worse or concerns. Todays work up was gone over with patient by myself and dr sahm. ROBERTS. Pt had no n/v/d while in this ER.
[2021-01-03 19:48] VITALS: BP 125/71
== END 2021-01-03 19:53 | disposition home or self-care (01) ==
LOC: ED 18:38
DX: K29.00 Acute gastritis without bleeding (principal); R11.2 Nausea with vomiting, unspecified; F17.210 Nicotine dependence, cigarettes, uncomplicated; I10 Essential (primary) hypertension; Z90.89 Acquired absence of other organs; Z90.710 Acquired absence of both cervix and uterus; Z88.0 Allergy status to penicillin; Z85.41 Personal history of malignant neoplasm of cervix uteri; Z90.721 Acquired absence of ovaries, unilateral
CPT/HCPCS: 36415; 71045; 80053; 81003; 83690; 85025; 96361; 96374; 96375; 99284; 99406; J2405; J7030

== ENCOUNTER 2021-01-10 10:59 | Emergency (ER) | payer MEDICARE, MEDICAID ==
[~2021-01-10] VITALS: Ht 160 cm; Wt 68.7 kg
[2021-01-10 11:38] VITALS: BP 112/75
[2021-01-10] MEDS ORDERED: FLUORESCEIN OPHTHALMIC 1 MG STRIP ONE (11:49)
[2021-01-10] MEDS ORDERED: PROPARACAINE OPHTH 0.5%, 15ML ONE (11:49)
[2021-01-10] MEDS ORDERED: FLUORESCEIN OPHTHALMIC 1 MG STRIP EACHEYE ONE (12:00)
[2021-01-10] MEDS ORDERED: PROPARACAINE OPHTH 0.5%, 15ML EACHEYE ONE (12:00)
== END 2021-01-10 13:21 | disposition home or self-care (01) ==
LOC: ED 11:11
DX: H00.015 Hordeolum externum left lower eyelid (principal); G89.29 Other chronic pain; F17.290 Nicotine dependence, other tobacco product, uncomplicated
CPT/HCPCS: 99283

== ENCOUNTER 2021-01-13 16:04 | Emergency (ER) | payer MEDICARE, MEDICAID ==
[~2021-01-13] VITALS: Ht 162.6 cm; Wt 60.0 kg
--- NOTE | 2021-01-13 16:04 | NUR ---
Pt arrived by EMS, 12 lead completed, placed on bedside monitor, and changed into gown. RA sat obtained and pt refusing to respond to stimuli with BUE with trace twitches of muscles. Arm drop test reveals pt avoiding hitting herself in the head and upon statement that narcotics will not be likely currently, pt awakened and became argumentative with staff. Pt states she does not know who she is, where she is, when it is, and that she is offended by staff and wants to go home after he ARZATE is made to feel better. Pt moves all extremities strongly and equally once responding and pupils are SANA at 3mm bilat.
[2021-01-13 16:05] VITALS: BP 123/86
--- NOTE | 2021-01-13 16:20 | NUR ---
Report given to KAY Dumont for meal break and care transferred.
--- NOTE | 2021-01-13 16:41 | NUR ---
PT REFUSING TYLENOL. "I WANT SOMETHNG STRONGER".
--- NOTE | 2021-01-13 16:43 | NUR ---
PT ONLY ANSWERING "AOX4 QUESTIONS" WITH "I DONT KNOW".
--- NOTE | 2021-01-13 16:59 | NUR ---
Arrived back from meal break to hear pt refusing to take Tylenol for ARZATE being offered by meal break RN as per orders. Pt overheard stating that Tylenol and Ibuprofen for a ARZATE are not strong enough. When asked what she thinks is strong enought, pt states she needs something stronger. When notified that narcotics are not going to be ordered for a ARZATE here by KAY Dumont, pt becomes verbally aggressive stating she did not ask for narcotics but unable to state what is stronger if not narcotics. Upon receiving report from Tim, pt reportedly wanted to leave, had stated that was okay, and then pt was told she could leave and started to state she was having anxiety "full blown" and did not want to leave until her ARZATE stopped. Pt standing in room with steady gait.
[2021-01-13] MEDS ORDERED: ACETAMINOPHEN 500 MG TABLET PO ONE (17:00)
--- NOTE | 2021-01-13 17:04 | NUR ---
Pt out of room asking if the male nurse was going to help her by giving her something for her anxiety. Pt was informed that no orders for anxiety reducing medications are present and offered Tylenol for ARZATE. Pt states she did not want any Tylenol while using curse words to emphasize lack of desire for Tylenol.
[2021-01-13 17:09] LABS: BASOPHILS % (AUTO) 1 % (0-1); EOSINOPHILS % (AUTO) 2 % (1-7); LYMPHOCYTES % (AUTO) 43 % (22-44); MEAN CORPUSCULAR HEMOGLOBIN 29.4 pg (27.0-34.8); MEAN CORPUSCULAR HGB CONC 33.8 g/dL (32.4-35.8); MEAN PLATELET VOLUME 7.8 fL (7.4-10.4); MONOCYTES % (AUTO) 6 % (2-9); NEUTROPHILS % (AUTO) 49 % (42-75); PLATELET COUNT 234 x10^3/uL (130-400); RED BLOOD COUNT 4.54 x10^6/uL (3.82-5.3); RED CELL DISTRIBUTION WIDTH 13.6 % (9.6-15.2)
--- NOTE | 2021-01-13 17:09 | NUR ---
Pt walking with purpose through hallway stating she wants to leave. Redirected to room and IV d/c'd. Asked pt to wait to speak with MD before leaving and pt refused, walking to d/c desk to call her mother to come get her and stating in the same sentence she does not know who she is or where she is, but that her mom is local and will come pick her up at the entrance to the ED.
[2021-01-13 17:14] LABS: ALANINE AMINOTRANSFERASE 33 U/L (12-78); ALBUMIN 3.5 g/dL (3.4-5.0); ANION GAP 5 mmol/L (5-15); CALCIUM 8.6 mg/dL (8.5-10.1); CHLORIDE 106 mmol/L (98-107); CREATININE 0.61 mg/dL (0.55-1.02)
[2021-01-13 17:16] LABS: ALKALINE PHOSPHATASE 101 U/L (45-117); BILIRUBIN,TOTAL 0.3 mg/dL (0.2-1.0); TOTAL PROTEIN 7.2 g/dL (6.4-8.2)
== END 2021-01-13 17:15 | disposition left against medical advice (07) ==
LOC: ED 16:27
DX: R56.9 Unspecified convulsions (principal); Z72.9 Problem related to lifestyle, unspecified; I45.19 Other right bundle-branch block; I10 Essential (primary) hypertension; F17.200 Nicotine dependence, unspecified, uncomplicated; Z88.0 Allergy status to penicillin
CPT/HCPCS: 36415; 80053; 85025; 93005; 99284